=== PATIENT | male | born 1960 | race Caucasian/White ===

== ENCOUNTER 2019-08-11 08:17 | Outpatient (CLI) | payer BC, SELFPAY ==
--- NOTE | 2019-08-11 08:32 | ECG_ITS ---
Measurements Intervals [place] Rate: 91 P: 52 DE: 190 QRS: -9 QRSD: 91 T: 31 QT: 365 QTc: 449 Interpretive Statements SINUS RHYTHM POSSIBLE LEFT ATRIAL ENLARGEMENT CANNOT RULE OUT SEPTAL INFARCT, AGE INDETERMINATE BASELINE WANDER- V2 ABNORMAL ECG Electronically Signed On 08-11-2019 8:51:37 CDT by Jose Manuel Aguila D.O.
== END 2019-08-11 08:18 | disposition home or self-care (01) ==
LOC: ANHCARD 08:21
PROVIDERS: PCP Internal Medicine; Visit Provider Nurse Practitioner
DX: R07.9 Chest pain, unspecified (principal); R94.31 Abnormal electrocardiogram [ECG] [EKG]
CPT/HCPCS: 93005

== ENCOUNTER 2019-08-15 09:02 | Outpatient (CLI) | payer BC, SELFPAY ==
--- NOTE | 2019-08-15 09:19 | EST_ITS ---
Patient Info Name: Harrison Rogers Age: 58 years : 1960 Gender: Male Ht: 71 in Wt: 205 lbs BSA: 2.18 m2 Technical Quality: Good Exam Date: 08/15/2019 10:21 AM [facility] Patient Status: Outpatient Admit Date: 08/15/2019 Staff Ordering Physician: Ange Martinez NP Manager Basketball: Mecca Robertson RCS Attending Provider: TORRIE DUENAS DO Referring Physician: Michelle RAYO; Exercise Technologist: Mitali Etienne RDCS Exercise Physician: Torrie Duenas DO Exam Type: CA stress echo Study Info Indications R94.31 - Abnormal electrocardiogram ECG EKG Treadmill exercise stress echocardiogram is performed. Summary 1. 1. Negative Harvinder exercise stress test for ischemic ST changes by ECG criteria. 2. 2. Good functional capacity, achieving 10 METs of workload. 3. 3. Baseline hypertension. 4. 4. Appropriate HR response to exercise. 5. 5. Appropriate HR recovery at 1 minute post exercise. 6. 6. Negative stress echocardiogram for ischemia by wall motion analysis. 7. 7. Patient informed of the above results. Stress Echo Findings Left Ventricle Appropriate increase in LV endocardial thickening with systole. Appropriate augmentation of contractility with systole. No wall motion abnormality. Left Ventricle Normal LV systolic function, no wall motion abnormality. Protocol: Harvinder Stress ECG Details Stage: REST Duration (min): 6 min : 13 sec Speed (mph): 0.0 Grade (%): 0 HR (bpm): 74 SBP (mmHg): 157 DBP (mmHg): 92 METS: --- Stage: REST Duration (min): 13 min : 46 sec Speed (mph): 0.0 Grade (%): 0 HR (bpm): 79 SBP (mmHg): 157 DBP (mmHg): 92 METS: --- Stage: STAGE 1 Duration (min): 1 min : 0 sec Speed (mph): 1.7 Grade (%): 10 HR (bpm): 103 SBP (mmHg): 157 DBP (mmHg): 92 METS: --- Stage: STAGE 1 Duration (min): 2 min : 0 sec Speed (mph): 1.7 Grade (%): 10 HR (bpm): 106 SBP (mmHg): 157 DBP (mmHg): 92 METS: --- Stage: STAGE 1 Duration (min): 3 min : 0 sec Speed (mph): 1.7 Grade (%): 10 HR (bpm): 109 SBP (mmHg): 168 DBP (mmHg): 83 METS: --- Stage: STAGE 2 Duration (min): 1 min : 0 sec Speed (mph): 2.5 Grade (%): 12 HR (bpm): 120 SBP (mmHg): 168 DBP (mmHg): 83 METS: --- Stage: STAGE 2 Duration (min): 2 min : 0 sec Speed (mph): 2.5 Grade (%): 12 HR (bpm): 127 SBP (mmHg): 179 DBP (mmHg): 80 METS: --- Stage: STAGE 2 Duration (min): 3 min : 0 sec Speed (mph): 2.5 Grade (%): 12 HR (bpm): 131 SBP (mmHg): 179 DBP (mmHg): 80 METS: --- Stage: STAGE 3 Duration (min): 1 min : 0 sec Speed (mph): 3.4 Grade (%): 14 HR (bpm): 146 SBP (mmHg): 183 DBP (mmHg): 80 METS: --- Stage: STAGE 3 Duration (min): 2 min : 0 sec Speed (mph): 3.4 Grade (%): 14 HR (bpm): 154 SBP (mmHg): 183 DBP (mmHg): 80 METS: --- Stage: STAGE 3 Duration (min)
== END 2019-08-15 09:03 | disposition home or self-care (01) ==
PROVIDERS: PCP Internal Medicine; Visit Provider Nurse Practitioner
DX: R94.31 Abnormal electrocardiogram [ECG] [EKG] (principal)
CPT/HCPCS: 93351

== ENCOUNTER 2020-08-13 09:08 | Outpatient (CLI) | payer BC, SELFPAY ==
--- NOTE | ~2020-08-13 | CT_ITS ---
EXAMINATION: CT abdomen pelvis w con INDICATION: Left lower quadrant pain TECHNIQUE: Computed tomographic images of the abdomen and pelvis were obtained after the administrati on of 100 cc of Omnipaque 350 intravenous contrast. The dose-length product (DLP) was 806.79 mGy-cm. Automated exposure control and iterative reconstruction technique were employed. COMPARISON: 10/03/2018 FINDINGS: The lung bases are clear. The heart size is normal. The liver is diffusely low in attenuati on when compared with the spleen, consistent with hepatic steatosis. Cysts of the liver measure up to 8 mm in the left hepatic lobe. The spleen, pancreas, gallbladder, and adrenal glands are normal. Cys ts of the kidneys measure up to 1.9 cm on the right. There is a 4 mm stone in the proximal left urete r which causes mild hydronephrosis. No pathologically enlarged abdominal or pelvic lymph nodes are id entified. There is calcified atherosclerosis of the aorta and many of the other arteries. There is no free intraperitoneal gas or evidence of bowel obstruction. The appendix is normal. There is moderate spondylosis at L5-S1. A small fat-containing umbilical hernia is noted. IMPRESSION: 1. 4 mm stone in the proximal left ureter causing mild left hydronephrosis. Reviewed, dictated and finalized at location B.
[2020-08-13 09:37] LABS: Estimated Glomerular Filt Rate > 60
== END 2020-08-13 09:09 | disposition home or self-care (01) ==
PROVIDERS: PCP Internal Medicine; Visit Provider Nurse Practitioner
DX: R10.32 Left lower quadrant pain (principal); K76.89 Other specified diseases of liver; N28.1 Cyst of kidney, acquired; N13.2 Hydronephrosis with renal and ureteral calculous obstruction
CPT/HCPCS: 74177; Q9967

== ENCOUNTER 2021-05-23 08:35 | Emergency (ER) | payer BC, SELFPAY ==
--- NOTE | ~2021-05-23 | XR_ITS ---
EXAMINATION: XR chest 1V portable EXAM DATE: 05/23/2021 09:42 INDICATION: Cough, shortness of breath. TECHNIQUE: Portable AP frontal chest x-ray was obtained. There is no prior study for comparison. FINDINGS: Some left midlung zone somewhat linear opacities which could be subsegmental atelectasis or pneumonia. The lungs are otherwise clear. There are no pleural effusions. The cardiomediastinal si lhouette is within normal limits. There is no pneumothorax suspected. There are no osseous abnormal ities identified. IMPRESSION: Left midlung zone subsegmental atelectasis or pneumonia. Reviewed, dictated and finalized at location B. GRINDER
[2021-05-23 08:43] VITALS: BP 147/87; PULSE 106; RESP 16; TEMP 36.2; O2SAT 97
[2021-05-23 09:18] VITALS: PULSE 108; O2SAT 96
[2021-05-23 09:36] LABS: Hematocrit 46.4 % (42.0-52.0); Hemoglobin 15.7 g/dL (14.0-18.0); Immature Granulocyte Absolute 0.02 K/mm3 (0.00-0.031); Immature Granulocyte Percent A 0.4 % (0-0.5); Immature Platelet Fraction Pct 3.8 % (0.9-11.2); Lymphocytes Absolute Auto 0.83 K/mm3 (0.9-3.2); Lymphocytes Percent Auto 15.3 % (18.3-44.2); Mean Corpuscular HGB Conc 33.8 g/dl (32-36); Mean Corpuscular Hemoglobin 28.5 pg (26-34); Mean Corpuscular Volume 84.4 fl (80-100); Mean Platelet Volume 9.8 fl (7.4-10.4); Monocytes Absolute Auto 0.4 K/mm3 (0.1-0.6); Monocytes Percent Auto 7.9 % (2.6-8.5); Neutrophils Absolute Auto 4.1 K/mm3 (1.3-6.7); Neutrophils Percent Auto 76.4 % (45.5-73.1); Platelet Count Result 143 k/mm3 (150-375); Red Cell Distribution Width 12.6 % (11.5-14.5); White Blood Count 5.4 K/mm3 (4.5-10.0)
[2021-05-23 09:48] LABS: Alanine Aminotransferase 52 U/L (4-50); Albumin Level 4.2 g/dL (3.5-5.1); Alkaline Phosphatase 81 U/L (38-126); Anion Gap 11 mmol/L (8-16); Aspartate Amino Transferase 48 U/L (17-59); Bilirubin,Total 0.6 mg/dL (0.2-1.3); Blood Urea Nitrogen 14 mg/dL (9-20); Calcium 8.9 mg/dL (8.4-10.2); Carbon Dioxide 28 mmol/L (22-30); Chloride 99 mmol/L (98-107); Estimated CRCL calculation 89 ml/min; Estimated Glomerular Filt Rate > 60; Glucose 130 mg/dL (65-110); Potassium 3.7 mmol/L (3.4-5.0); Sodium 138 mmol/L (137-145)
--- NOTE | 2021-05-23 09:54 | ED.GENADULT ---
HPI - General Adult General Chief complaint: Weakness <Juarez Hammer PA-C - Last Filed: 05/23/21 10:28> Stated complaint: covid positive <ELOY hTapa Last Filed: 05/23/21 10:28> Time Seen by Provider: 05/23/21 09:18 <Juarez Hammer PA-C - Last Filed: 05/23/21 10:28> Source: patient <ELOY Thapa Last Filed: 05/23/21 10:28> Mode of arrival: ambulatory <ELOY Thapa Last Filed: 05/23/21 10:28> Limitations: no limitations <ELOY Thapa Last Filed: 05/23/21 10:28> History of Present Illness HPI narrative: Patient is a 60 yo male, unvaccinated against COVID, who tested positive for COVID on 05/21/21. He states he has felt fatigue and nausea. He denies vomiting or diarrhea. He reports dry cough. He states e has talked to his PCP and she told him he is not a good candidate for monoclonal antibodies. Patient denies chest pain, syncope, wheezing, or any other emergent symptoms. <Juarez Hammer PA-C - Last Filed: 05/23/21 10:28> Related Data Allergies/adverse reactions: Allergies Allergy/AdvReac Type Severity Reaction Status Date / Time codeine Allergy Mild JITTERY Verified 05/31/20 08:06 hydrocodone Allergy Mild JITTERY Verified 05/31/20 08:06 <Juarez Hammer PA-C - Last Filed: 05/23/21 10:28> Review of Systems Review of Systems: CONSTITUTIONAL: Reports fatigue denies fever, chills, or sweats. EYES: Denies visual changes, redness, or discharge. ENT: Denies rhinorrhea, congestion, sore throat, or otalgia. CARDIOVASCULAR: Denies chest pain, palpitations, or edema. RESPIRATORY: Reports cough denies dyspnea. GASTROINTESTINAL: Reports nausea denies abdominal pain, vomiting, or diarrhea. GENITOURINARY: Denies dysuria or hematuria. SKIN: Denies rash or itching. MUSCULOSKELETAL: Denies back pain, joint pain, or myalgia. NEUROLOGIC: Denies headache, numbness, dizziness, or weakness. PSYCHIATRIC: Denies anxiety or depression. <Juarez Hammer PA-C - Last Filed: 05/23/21 10:28> [facility] Past Medical History Medical History: Medical History (Updated 05/23/21 @ 10:08 by Juarez Hammer PA-C) GERD (gastroesophageal reflux disease) Kidney stone removed Kidney stone on left side Melanoma <Juarez Hammer PA-C - Last Filed: 05/23/21 10:28> Family History Family History: Family History Grandparent Cerebrovascular accident Father Glaucoma <Juarez Hammer PA-C - Last Filed: 05/23/21 10:28> Social History Social History: Social History Smoking status: Never smoker Smoking end date: 05/04/84 Alcohol intake: never <Jaurez Hammer PA-C - Last Filed: 05/23/21 10:28> Exam Narrative: GENERAL: Well-appearing, well-nourished, and in no acute distress. HEAD: Normocephalic, atraumatic. EYES: PERRLA and EOMI. NECK: Supple. No adenopathy or masses. Range of motion intact. CHEST: Clear to auscultation. No respiratory distress. No wheezes rales or rhonchi. Patient speaking in clear sentences without difficulty. Not tachypneic. HEART: Regular rate and rhythm. EXTREMITIES: Normal range of motion. No edema. SKIN: Warm, dry, no rash. NEURO: No focal deficits. Alert and oriented x3. PSYCH: Normal mood and affect. <Juarez Hammer PA-C - Last Filed: 05/23/21 10:28> Course SPIRITUAL COUNSELOR/PA Physician Supervision For this patient encounter, I reviewed the SPIRITUAL COUNSELOR or PA documentation, treatment plan, and medical decision making. <Blayne Carvalho MD - Last Filed: 05/23/21 13:40> Vital Signs Vital signs: Vital Signs Temperature 97.1 F L 05/23/21 08:43 Pulse Rate 106 H 05/23/21 08:43 Respiratory Rate 16 01/20/22 08:43 Blood Pressure 147/87 H 05/23/21 08:43 Pulse Oximetry 97 05/23/21 08:43 Temperature 97.1 F L 05/23/21 08:43 Pulse Rate 95 05/23/21 10:24 Respiratory Rate 20 05/23/21 10:24 Blood Pressure
[2021-05-23] MEDS: ONDANSETRON HCL ODT 4 MG TABLET PO (10:06)
[2021-05-23 10:24] VITALS: BP 149/99; PULSE 95; RESP 20; O2SAT 95
== END 2021-05-23 10:27 | disposition home or self-care (01) ==
PROVIDERS: Physician Assistant; Emergency Provider Emergency Medicine; PCP Internal Medicine
DX: U07.1 COVID-19 (principal); J18.9 Pneumonia, unspecified organism; K21.9 Gastro-esophageal reflux disease without esophagitis; Z87.442 Personal history of urinary calculi; Z85.820 Personal history of malignant melanoma of skin
CPT/HCPCS: 36415; 71045; 80053; 85025; 85055; 99283; A9270

== ENCOUNTER 2022-05-30 08:39 | Outpatient (CLI) | payer OTHER, SELFPAY ==
[2022-05-30 19:52] LABS: Basophils Absolute Auto 0.1 K/mm3 (0.0-0.1); Eosinophils Absolute Auto 0.2 K/mm3 (0-0.3); Eosinophils Percent Auto 2.9 % (0-4.4); Hematocrit 46.5 % (42.0-52.0); Immature Granulocyte Absolute 0.01 K/mm3 (0.00-0.031); Immature Granulocyte Percent A 0.2 % (0-0.5); Lymphocytes Absolute Auto 1.63 K/mm3 (0.9-3.2); Lymphocytes Percent Auto 27.4 % (18.3-44.2); Mean Corpuscular HGB Conc 32.3 g/dl (32-36); Mean Corpuscular Hemoglobin 27.8 pg (26-34); Mean Corpuscular Volume 86.3 fl (80-100); Mean Platelet Volume 10.4 fl (7.4-10.4); Monocytes Absolute Auto 0.6 K/mm3 (0.1-0.6); Monocytes Percent Auto 9.7 % (2.6-8.5); Neutrophils Absolute Auto 3.5 K/mm3 (1.3-6.7); Neutrophils Percent Auto 58.8 % (45.5-73.1); Platelet Count Result 203 k/mm3 (150-375); Red Blood Count 5.39 M/mm3 (4.6-6.20); Red Cell Distribution Width 14.1 % (11.5-14.5)
[2022-05-30 20:51] LABS: Prostate Specific Antigen 3.3 ng/mL (< OR = 4.0)
[2022-05-30 21:27] LABS: Alanine Aminotransferase 52 U/L (6-50); Albumin Level 4.2 g/dL (3.5-5.1); Alkaline Phosphatase 68 U/L (38-126); Anion Gap 7 mmol/L (8-16); Aspartate Amino Transferase 45 U/L (17-59); Bilirubin,Total 0.6 mg/dL (0.2-1.3); Blood Urea Nitrogen 17 mg/dL (9-20); Calcium 9.1 mg/dL (8.4-10.2); Carbon Dioxide 29 mmol/L (22-30); Chloride 106 mmol/L (98-107); Cholesterol 176 mg/dL (0-200); Estimated Glomerular Filt Rate > 60; Glucose 92 mg/dL (65-110); HDL Direct 43 mg/dL; Potassium 4.8 mmol/L (3.4-5.0); Sodium 142 mmol/L (137-145); Triglycerides 133 mg/dL (<150)
[2022-05-30 21:30] LABS: LDL Cholesterol Direct 100 mg/dL
== END 2022-05-30 08:40 | disposition home or self-care (01) ==
LOC: ANHGOSHLAB 08:41
PROVIDERS: PCP Internal Medicine; Visit Provider Nurse Practitioner
DX: Z13.29 Encounter for screening for other suspected endocrine disorder (principal); Z13.220 Encounter for screening for lipoid disorders; Z12.5 Encounter for screening for malignant neoplasm of prostate
CPT/HCPCS: 36415; 80053; 80061; 84153; 85025; G0103

== ENCOUNTER 2022-07-10 08:26 | Outpatient (CLI) | payer OTHER, SELFPAY ==
--- NOTE | 2022-07-22 14:41 | WPDHOMESLEEP ---
Sleep Study - Home Unattended Date of Study: 07/10/22 Ordering Provider: Ange Martinez NP Interpreting Provider: Jerri Daniels, DO Home Sleep Study Type: Watch PAT Height: 1.8 m Weight: 90.718 kg Body Mass Index: 27.8 Neck Circumference (inches): 17 [place]: 8 Reason for Sleep Study Snoring, multiple nighttime awakenings Sleep History The patient is a 61-year-old male with depression, GERD and history of tobacco use that had a sleep study ordered by his primary care for evaluation of sleep apnea. The patient denies awakening from sleep short of breath. He occasionally awakens at night with heartburn, belching or cough. He constantly snores loudly enough that others complain. He frequently has trouble sleeping when he has a cold. He denies waking up gasping for air throughout the night. He occasionally has breathing problems at night observed by himself or others. He denies sweating excessively at night. He occasionally has heart palpitations or irregular heartbeats during the night. He occasionally falls asleep during the day but never while driving. He denies sleep paralysis, cataplexy and hypnagogic / hypnopompic hallucinations. He denies having trouble at school or work due to sleepiness. He denies feeling afraid of going to sleep. He denies having nightmares. He occasionally remembers his dreams. He occasionally has thoughts racing through his mind. He denies feeling sad or depressed. He occasionally has anxiety. He denies having muscular tension. He denies noticing parts of his body jerk. He denies kicking during the night. He denies having crawling and aching feelings in his legs and denies having leg pain during the night. He denies grinding his teeth during sleep and denies awakening with morning jaw pain. He denies being bothered by pain during the day and denies being awakened by pain during the night. He denies waking up feeling stiff in the morning. He denies waking up with sore or achy muscles. He denies waking up with pain in the neck, spine and other joints. He goes to bed between 9-10 p.m. on both weekdays and weekends. It takes him 30 minutes to fall asleep. He wakes up 2-3 times throughout the night to urinate and will take 10-20 minutes to fall back asleep. He wakes up between 6-7 a.m. on both weekdays and weekends. He typically gets 5-6 hours of sleep per night. He will stay in bed for 15-20 minutes after waking up in the morning. He currently lives with his . He does not consume any caffeinated beverages within 2 hours of bedtime. He does not engage in physical exercise before bedtime. He will watch television before falling asleep. He will occasionally take naps in the afternoon or the evening and they are refreshing. He denies consuming any caffeinated beverages throughout the day. He quit smoking cigarettes 30 years ago. He denies alcohol and recreational drug use. [facility] Past Medical History Medical History GERD (gastroesophageal reflux disease) Kidney stone removed Kidney stone on left side Melanoma Family History Family History Grandparent Cerebrovascular accident Father Glaucoma Social History Social History Smoking status: Never smoker Smoking end date: 05/04/84 Alcohol intake: never Lack of Transportation: No Lack of Food: Never True Current Housing: I Have Housing Concerned About Future Housing: No Difficulty Paying Gas/Electric Bills: No Difficulty Paying for Meds: No Currently Unemployed: No Education: Trade/Vocational Certificate Difficulty w/ Childcare or Family Care: No Medications Home Medications Medication Instructions Recorded Confirmed Type famotidine 10 mg tablet (Acid 10 mg PO DAILY 01/16/22 01/16/22 History Lining Stamper (famotidine)) lac
[2022-07-22 14:49] VITALS: BMI 27.8
== END 2022-07-11 12:20 | disposition home or self-care (01) ==
LOC: ANHCSM 08:26
PROVIDERS: PCP Internal Medicine; Visit Provider Nurse Practitioner
DX: G47.10 Hypersomnia, unspecified (principal); G47.33 Obstructive sleep apnea (adult) (pediatric)
CPT/HCPCS: 95800

== ENCOUNTER → 2022-12-29 14:31 | Outpatient (CLI) | payer OTHER, SELFPAY ==
--- NOTE | ~2022-12-29 | XR_ITS ---
EXAMINATION: XR shoulder RT min 2V DATE: 12/29/2022 15:01 INDICATION: Right shoulder injury and pain. TECHNIQUE: 4 views of right shoulder were obtained. COMPARISON: None. FINDINGS: Bone alignment is normal. No fracture. There is mild osteoarthritis of glenohumeral joint a nd severe osteoarthritis of acromioclavicular joint. IMPRESSION: 1. Polyarticular osteoarthritis. Reviewed, dictated and finalized at location E.
== END ==
PROVIDERS: PCP Nurse Practitioner; Visit Provider Nurse Practitioner
DX: M19.011 Primary osteoarthritis, right shoulder (principal)
CPT/HCPCS: 73030

== ENCOUNTER → 2023-06-17 09:07 | Outpatient (CLI) | payer OTHER, SELFPAY ==
--- NOTE | ~2023-06-17 | XR_ITS ---
Clinical Indication: Shortness of breath PA and lateral views of the chest: Comparison: 05/23/2021 Findings: The lungs are clear, without evidence of focal consolidation or pleural effusion. Cardiome diastinal silhouette is within normal limits. Bones and soft tissues are unremarkable. Impression: Normal chest. Reviewed, dictated and finalized at [facility]. ICAL OPERATIONS AND TRAINING Impression: Normal chest.
== END ==
PROVIDERS: PCP Internal Medicine; Visit Provider Nurse Practitioner
DX: R06.02 Shortness of breath (principal)
CPT/HCPCS: 71046

== ENCOUNTER 2024-06-09 10:43 | Outpatient (CLI) | payer MEDICARE, SELFPAY ==
--- NOTE | ~2024-06-09 | US_ITS ---
Limited Abdominal Sonogram: Real-time sonographic imaging of the right upper quadrant was performed. Clinical History: Abdominal pain Findings: The liver appears normal with no evidence of mass lesion or bile duct dilatation. Main por kinjal vein demonstrates normal direction of flow. The gallbladder is well distended, and appears normal with no evidence of gallstone or wall thickening. The common bile duct measures 4 mm. The visualize d pancreas, aorta, and IVC are unremarkable. Right renal cyst noted. Impression: No significant abnormality seen. Reviewed, dictated and finalized at location M. BRATION CHECKER Impression: No significant abnormality seen.
== END 2024-06-09 10:44 | disposition home or self-care (01) ==
LOC: GOSHIMG 10:43
PROVIDERS: PCP Nurse Practitioner; Visit Provider Nurse Practitioner
DX: R10.11 Right upper quadrant pain (principal)
CPT/HCPCS: 76705

== ENCOUNTER 2024-06-16 09:24 | Outpatient (CLI) | payer MEDICARE, SELFPAY ==
--- NOTE | ~2024-06-16 | XR_ITS ---
EXAMINATION: XR abdomen/kub 1V DATE: 06/16/2024 09:46 INDICATION: Gastroesophageal reflux disease. TECHNIQUE: A supine view of the abdomen on 3 radiographs was obtained. COMPARISON: CT abdomen and pelvis 08/13/2020 FINDINGS: There are no dilated loops of bowel. There is a moderate volume of stool in the colon. IMPRESSION: 1. Normal bowel gas pattern. Reviewed, dictated and finalized at location A. P PRESS OPERATOR
--- NOTE | ~2024-06-16 | XR_ITS ---
EXAMINATION: XR chest 2V DATE: 06/16/2024 09:46 INDICATION: Atypical chest pain. TECHNIQUE: Frontal and lateral views of the chest were obtained. COMPARISON: Chest 2 views 06/17/2023 FINDINGS: There is no pneumonia, pleural effusion, or pneumothorax. The heart size is normal. There a re surgical clips in left axilla. IMPRESSION: 1. No acute cardiopulmonary disease. Reviewed, dictated and finalized at location A. LED HELPER
--- OUTSIDE RECORDS SUMMARY | 2024-06-16 09:44 | XMS_ITS | Clinical Summary ---
Author [place] [facility] [place] [address] Address [address] [place] [address] Care Team Providers Care Employment Recruiter Name Role Phone Jennie CARROLL MD, Keegan Perry Primary Care Provid er Allergies Active Allergy Reactions Criticality Noted Date Comments Hydrocodone-Acetaminophen Medications famotidine (PEPCID) 20 mg tablet Take 20 mg by mouth nightly 1 Active fluvoxaMINE 100 mg capsule,extende d release 24hr 1 Active albuterol HFA (ProAir HFA) 90 mcg/actuation inhaler Inhale 2 puffs every 4 (four) hours as needed for wheezing or shortness of breath 8.5 g 1 Active azithromycin (ZITHROMAX) 250 mg tablet Take 2 tabs (500 mg) by mouth today, than 1 daily for 4 days. 6 tablet 1 Active Additional Information Patient not taking.Reported on 05/19/2021 ketoconazole (NIZORAL) 2 % shampooIndicati ons:Seborrheic dermatitis, unspecified Apply to damp skin, lather, leave on 5 minutes, and rinse 120 mL 3 4 Active fluocinonide (LIDEX) 0.05 % external solutionIndicat ions:Seborrheic dermatitis, unspecified Apply twice a day to scalp for rash (avoid eyelids and face) 60 mL 3 4 Active triamcinolone (KENALOG) 0.1 % creamIndication s:Rash and other nonspecific skin eruption Apply to hands twice a day as needed for rash. 80 g 3 5 Active triamcinolone (KENALOG) 0.1 % ointmentIndicat ions:Rash and other nonspecific skin eruption Apply topically 2 (two) times a day as needed for rash 180 g 3 4 025 Discontin ued(Alter elizabeth therapy) Active Problems Problem Noted Date Diagnosed Date Malignant melanoma of left u pper extremity including shoulder 11/08/2020 Actinic keratosis 12/22/2016 Sebaceous gland hyperplasia 12/22/2016 Basal cell carcinoma (BCC) of upper extremity History of nonmelanoma skin cancer 11/06/2015 Sebaceous cyst 11/06/2015 Seborrheic eczema 06/05/2015 Intertrigo 06/05/2015 Tinea versicolor 06/05/2015 Surgical follow-up care 04/04/2015 Neoplasm of connective and soft tissue 5 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 Basal cell carcinoma (BCC) of face 06/06/2014 Benign neoplasm of skin of trunk 05/16/2014 Keratosis, senilis 05/16/2014 Malignant melanoma of back 05/16/2014 Resolved Problems Problem Noted Date Diagnosed Date Resolved Date Neoplasm of uncertain behavior of skin 01/19/2017 11/08/2020 Skin neoplasm 02/27/2015 11/08/2020 Encounters Date Type Department Care Team Description 06/14/2024 1:15 PM TEST AND TURN UP TECHNICIAN Office Visit [facility] Floor [address] [place] [address] Mattie Breen MD Actinic keratosis (Primary Dx); Rash and other nonspecific skin eruption; History of malignant melanoma; History of nonmelanoma skin cancer; Seborrheic dermatitis, unspecified from Last 3 Months Immunizations Name Administration Dates Next Due Influenza, Quadrivalent, Rec ombinant, Egg Free, Preservative Free, Intramuscular 02/09/2019 Influenza, Quadrivalent, Spl it, Preservative Free, Intramuscular 02/15/2018 ZOSTER Recombinant 05/16/2019 Medical History Medical History Date Comments Personal history of malignan t melanoma of skin History of malignant melanom a of skin - (Added by TW Conv) Personal history of neoplasm of uncertain behavior History of neoplasm of uncer tain behavior of skin - (Added by TW Conv) Depression Kidney stone Cancer (CMS/HCC) (HCC) Melanoma (HCC) Family History Medical History Relation Name Comments Cancer Brother Melanoma Father Family history of melanoma - (Added by TW Conv) Arthritis Other Diabetes Other Heart disease Other Anesthesia problems Neg Hx Relation Name Status Comments Brother Father Other Social History Tobacco Use Types Packs/Day Years Used Date Smoking Tobacco: Former Cigarettes 0.8 10 Smokeless Tobacco: Never Tobacco Cessation:Counseling Given: Not Answered Comments:37 Alcohol Use Standard Drinks/Week Comments Never 0 (1 standard drink = 0.6 oz pur e alcohol) AUDIT-C Answer Date Recorded Q1: How often do you have a drink containing alc ohol? Never 11/12/2020 Average Number of Drinks Not on file 021 Q3: How often do you have si x or more drinks on one occasion? Never 11/12/2020 Sex and Gender Information Value Date Recorded Sex Assigned at Not on file Legal Sex Male 12:47 AM TEST AND TURN UP TECHNICIAN Gender Identity Not on file Sexual Orientation Not on file Obstetrics History Last Filed Vital Signs Vital Sign Reading Time Taken Comments Blood Pressure 132/74 04/13/2022 12:39 PM TEST AND TURN UP TECHNICIAN Pulse 114 04/13/2022 12:39 PM TEST AND TURN UP TECHNICIAN Temperature 36.8 C (98.3 F) 04/13/2022 12:39 PM TEST AND TURN UP TECHNICIAN Respiratory Rate 14 04/13/2022 12:39 PM TEST AND TURN UP TECHNICIAN Oxygen Saturation 96% 04/13/2022 12:39 PM TEST AND TURN UP TECHNICIAN Inhaled Oxygen Concentration - - Weight 92.6 kg (204 lb 1.6 oz) 04/13/2022 12:39 PM TEST AND TURN UP TECHNICIAN Height 180.3 cm (5' 10.98 ) 04/13/2022 12:39 PM TEST AND TURN UP TECHNICIAN Body Mass Index 28.48 04/13/2022 12:39 PM TEST AND TURN UP TECHNICIAN Plan of Treatment Health Maintenance Due Date Last Done Comments Colon Cancer Screening-Colonoscopy 1960 Depression Screening 1960 Hepatitis C Screening 1960 Prostate Cancer Screening-PSA 1960 DTaP/Tdap/Td Vaccine (1 - Tdap) 1969 Hepatitis B Screening 1976 Zoster Vaccine (2 of 2) 07/11/2019 05/16/2019 Fall Risk Assessment 11/12/2021 11/12/2020 Abdominal Aortic Aneurysm (AAA) Screen 09/14/2023 Pneumococcal vaccine 65+ (1 of 1 - PCV) 09/14/2023 Well Visit 65+ 09/14/2023 Influenza Vaccine (#1) 2024 02/09/2019, 2017 [place]REF[place] [employer] Care Teams Employment Recruiter Relationship Specialty Start Date End Date Keegan Schneider II, MD PCP - General Family Practice 09/07/17
--- OUTSIDE RECORDS SUMMARY | 2024-06-16 09:44 | XMS_ITS | Referral Summary ---
Author Organization [facility] [place] [address] Address [address] [place] [address] Care Team Providers Care Milker Machine Name Role Phone Jennie CARROLL MD, Keegan Perry Primary Care Provid er Encounters Date Type Department Care Team Description 06/14/2024 1:15 PM NURSES' AIDE Office Visit [facility] Floor [address] [place] [address] Mattie Breen MD Actinic keratosis (Primary Dx); Rash and other nonspecific skin eruption; History of malignant melanoma; History of nonmelanoma skin cancer; Seborrheic dermatitis, unspecified from Last 3 Months Allergies Active Allergy Reactions Criticality Noted Date [...] skin 01/19/2017 11/08/2020 Skin neoplasm 02/27/2015 11/08/2020 Immunizations Name Administration Dates Next Due Influenza, Quadrivalent, Rec ombinant, Egg Free, Preservative Free, Intramuscular 02/09/2019 Influenza, Quadrivalent, Spl it, Preservative Free, Intramuscular 02/15/2018 ZOSTER Recombinant 05/16/2019 Social History Tobacco Use Types Packs/Day Years [...] on file Legal Sex Male 12:47 AM NURSES' AIDE Gender Identity Not on file Sexual Orientation Not on file Last Filed Vital Signs Vital Sign Reading Time Taken Comments Blood Pressure 132/74 04/13/2022 12:39 PM NURSES' AIDE Pulse 114 04/13/2022 12:39 PM NURSES' AIDE Temperature 36.8 C (98.3 F) 04/13/2022 12:39 PM NURSES' AIDE Respiratory Rate 14 04/13/2022 12:39 PM NURSES' AIDE Oxygen Saturation 96% 04/13/2022 12:39 PM NURSES' AIDE Inhaled Oxygen Concentration - - Weight 92.6 kg (204 lb 1.6 oz) 04/13/2022 12:39 PM NURSES' AIDE Height 180.3 cm (5' 10.98 ) 04/13/2022 12:39 PM NURSES' AIDE Body Mass Index 28.48 04/13/2022 12:39 PM NURSES' AIDE Plan of Treatment Not on file Insurance [employer] PREFERRED AET[place] PREFERRED [facility] MEDICARE Care Teams Milker Machine Relationship Specialty Start Date End Date Keegan Schneider II, MD PCP - General Family Practice 09/07/17
== END 2024-06-16 09:25 | disposition home or self-care (01) ==
PROVIDERS: PCP Nurse Practitioner; Visit Provider Nurse Practitioner
DX: K21.9 Gastro-esophageal reflux disease without esophagitis (principal); R19.8 Other specified symptoms and signs involving the digestive system and abdomen; R07.89 Other chest pain
CPT/HCPCS: 71046; 74018

== ENCOUNTER 2024-08-31 00:43 | Day surgery (SDC) | payer MEDICARE, SELFPAY ==
[2024-08-22 10:18] VITALS: BMI 25.1
--- OUTSIDE RECORDS SUMMARY | 2024-08-31 00:46 | XMS_ITS | Referral Summary ---
Author Organization [facility] [place] [address] Address [address] [place] [address] Care Team Providers Care Gas Check Pad Maker Name Role Phone Jennie CARROLL MD, Keegan Perry Primary Care Provid er Encounters Date Type Department Care Team Description 06/14/2024 1:15 PM ASSISTANT EDUCATION DIRECTOR Office Visit [facility] Dermatology [facility] [place] [address] [place] [address] Mattie Breen MD Actinic keratosis (Primary Dx); Rash and other nonspecific skin eruption; History of malignant melanoma; History of nonmelanoma skin cancer; Seborrheic dermatitis, unspecified from Last 3 Months Allergies Active Allergy Reactions Criticality Noted Date Comments Hydrocodone-Acetaminophen Medications famotidine (PEPCID) 20 mg tablet Take 20 mg by mouth nightly 1 Active fluvoxaMINE 100 mg capsule,extended release 24hr 1 Active albuterol HFA (ProAir [...] taking.Reported on 05/19/2021 ketoconazole (NIZORAL) 2 % shampooIndicatio ns:Seborrheic dermatitis, unspecified Apply to damp skin, lather, leave on 5 minutes, and rinse 120 mL 3 4 Active fluocinonide (LIDEX) 0.05 % external solutionIndicati ons:Seborrheic dermatitis, unspecified Apply twice a day to scalp for rash (avoid eyelids and face) 60 mL 3 4 Active triamcinolone (KENALOG) 0.1 % creamIndications :Rash and other nonspecific skin eruption Apply to hands twice a day as needed for rash. 80 g 3 5 Active Active Problems Problem Noted Date Diagnosed Date [...] 01/19/2017 11/08/2020 Skin neoplasm 02/27/2015 11/08/2020 Immunizations Immunization Administration Dates Next Due Influenza, Quadrivalent, Rec [...] on file Legal Sex Male 12:47 AM ASSISTANT EDUCATION DIRECTOR Gender Identity Not on file Sexual Orientation Not on file Last Filed Vital Signs Vital Sign Reading Time Taken Comments Blood Pressure 132/74 04/13/2022 12:39 PM ASSISTANT EDUCATION DIRECTOR Pulse 114 04/13/2022 12:39 PM ASSISTANT EDUCATION DIRECTOR Temperature 36.8 C (98.3 F) 04/13/2022 12:39 PM ASSISTANT EDUCATION DIRECTOR Respiratory Rate 14 04/13/2022 12:39 PM ASSISTANT EDUCATION DIRECTOR Oxygen Saturation 96% 04/13/2022 12:39 PM ASSISTANT EDUCATION DIRECTOR Inhaled Oxygen Concentration - - Weight 92.6 kg (204 lb 1.6 oz) 04/13/2022 12:39 PM ASSISTANT EDUCATION DIRECTOR Height 180.3 cm (5' 10.98 ) 04/13/2022 12:39 PM ASSISTANT EDUCATION DIRECTOR Body Mass Index 28.48 04/13/2022 12:39 PM ASSISTANT EDUCATION DIRECTOR Plan of Treatment Not on file [place] Care Teams Gas Check Pad Maker Relationship Specialty Start Date End Date Keegan Schneider II, MD PCP - General Family Practice 09/07/17
--- OUTSIDE RECORDS SUMMARY | 2024-08-31 00:46 | XMS_ITS | Clinical Summary ---
Author Organization [facility] [place] [address] Address [address] [place] [address] Care Team Providers Care Video Recorder Mechanic Name Role Phone Jennie CARROLL MD, Keegan [...] Department Care Team Description 06/14/2024 1:15 PM ADULT CARE PROVIDER Office Visit [facility] Dermatology [address] [place] [address] [address] [place] [id number] Mattie Breen MD Actinic keratosis (Primary Dx); Rash and other nonspecific skin eruption; History of malignant melanoma; History of nonmelanoma skin cancer; Seborrheic dermatitis, unspecified from Last 3 Months Immunizations Immunization Administration Dates Next Due Influenza, [...] by TW Conv) Depression Kidney stone Cancer (HCC) Melanoma (HCC) Family History Medical History [...] on file Legal Sex Male 12:47 AM ADULT CARE PROVIDER Gender Identity Not on file Sexual Orientation Not on file Obstetrics History Last Filed Vital Signs Vital Sign Reading Time Taken Comments Blood Pressure 132/74 04/13/2022 12:39 PM ADULT CARE PROVIDER Pulse 114 04/13/2022 12:39 PM ADULT CARE PROVIDER Temperature 36.8 C (98.3 F) 04/13/2022 12:39 PM ADULT CARE PROVIDER Respiratory Rate 14 04/13/2022 12:39 PM ADULT CARE PROVIDER Oxygen Saturation 96% 04/13/2022 12:39 PM ADULT CARE PROVIDER Inhaled Oxygen Concentration - - Weight 92.6 kg (204 lb 1.6 oz) 04/13/2022 12:39 PM ADULT CARE PROVIDER Height 180.3 cm (5' 10.98 ) 04/13/2022 12:39 PM ADULT CARE PROVIDER Body Mass Index 28.48 04/13/2022 12:39 PM ADULT CARE PROVIDER Plan of Treatment Health Maintenance Due Date Last Done Comments Colon Cancer Screening-Colonoscopy 1958 Depression Screening 1958 Hepatitis C Screening 1958 Prostate Cancer Screening-PSA 1958 DTaP/Tdap/Td Vaccine (1 - Tdap) 1969 Hepatitis B Screening 1976 Pneumococcal vaccine 65+ (1 of 1 - PCV) 2008 Zoster Vaccine (2 of 2) 07/11/2019 05/16/2019 Fall Risk Assessment 11/12/2021 11/12/2020 Abdominal Aortic Aneurysm (AAA) Screen 09/14/2023 Well Visit 65+ 09/14/2023 Influenza Vaccine (#1) 2024 02/09/2019, 2017 [place] Care Teams Video Recorder Mechanic Relationship Specialty Start Date End Date Keegan Schneider II, MD PCP - General Family Practice 09/07/17
[2024-08-31 09:32] VITALS: BP 119/80; PULSE 76; RESP 18; TEMP 36.1; O2SAT 100
[2024-08-31] MEDS: LACTATED RINGERS 1,000 ML 150 ML IV CONT (09:37)
--- NOTE | 2024-08-31 09:41 | WPDANESEPPF ---
Anes - Initial Pre Proc Eval Procedure: Operation Date: 08/31/24 11:30 Proposed Procedures p Esophagogastroduodenoscopy & Colonoscopy - Tucker Mazariegos MD Date/Time: 08/31/24 09:41 Surgeon: Tucker Mazariegos MD Pre Op Diagnosis: GERD,other chest pain,fam hx of neoplasm Patient Data Age: 63 Gender: M Height: 1.8 m Weight: 81.2 kg Last Vital Signs Temp 97 F L 08/31/24 09:32 Pulse 76 08/31/24 09:32 Resp 18 08/31/24 09:32 BP 119/80 08/31/24 09:32 Pulse Ox 100 08/31/24 09:32 O2 Del Method Room Air 08/31/24 09:32 Allergies Allergy/AdvReac Type Severity Reaction Status Date / Time codeine Allergy Mild JITTERY Verified 08/31/24 09:30 hydrocodone Allergy Mild JITTERY Verified 08/31/24 09:30 Home Medications ?Medication ?Instructions ?Recorded ?Confirmed ?Type lactobacillus combination no.9 4 4,000 mmu cells PO DAILY 01/16/22 08/31/24 History billion cell capsule (Adult 50 Plus Probiotic) bqbmpjynmjlx-qrc-xhuif acid-vit 1 tablet PO DAILY 01/16/22 08/31/24 History K-lycop 400 mcg-20 mcg-370 mcg tablet (One-A-Day Men's 50 Plus (with vitamin K)) esomeprazole magnesium 20 mg 20 mg PO DAILY 06/07/24 08/31/24 History capsule,delayed release (Nexium 24HR) fluvoxamine 50 mg tablet See Rx Instructions .Route 07/01/24 08/31/24 Rx .COMPLEX #180 tabs Patient hx anesthesia problems: none Family hx anesthesia problems: none Results Review: All pre-operative results and documents have been reviewed as part of the pre-operative evaluation. [facility] Past Medical History Medical History Kidney stone on left side GERD (gastroesophageal reflux disease) Melanoma Kidney stone removed Surgical History Surgical History Status post surgical removal of malignant neoplasm of skin Family History Family History Grandparent Cerebrovascular accident Father Glaucoma Social History Social History Social History: Caffeine-rarely Smoking packs per day: 1 Smoking cigarettes per day: 20.0 Years smoked: 8 Smoking pack-years: 8.00 Smoking status: Former smoker Tobacco type: cigarettes Smoking end date: 05/04/84 Alcohol intake: never Substance use: never Substance use type: does not use Do You Feel Safe in your Home?: Yes Lack of Transportation: No Lack of Food: Never True Current Housing: I Have Housing Concerned About Future Housing: No Difficulty Paying Gas/Electric Bills: No Difficulty Paying for Meds: No Currently Unemployed: No Education: Trade/Vocational Certificate Difficulty w/ Childcare or Family Care: No Anes - Eval Final PreProcedure Day of Procedure 08/31/24 09:41 Patient weight: normal Heart: regular rate and rhythm Lungs: clear to auscultation Airway: Mallampati scale class II Neurological: alert and oriented Last oral intake: >/= 8 hours ASA classification: II Emergent: no Anesthetic plan: proceed Anesthesia type and monitoring: general GIVS and standard monitoring Results Review: All pre-operative results and documents have been reviewed as part of the pre-operative evaluation. Informed Consent: The patient's anesthetic plan and its attendant risks and benefits were discussed with the patient/family/POA. Questions were solicited and answers provided to the satisfaction of the patient/family/POA.
--- NOTE | 2024-08-31 09:43 | PM.HPGS ---
History of Present Illness History of Present Illness Consent: Risks, benefits, and alternatives have been discussed and questions answered. Patient agrees to proceed with procedure. Chief complaint: GERD,other chest pain,fam hx of neoplasm Narrative: Harrison Rogers is a 63 year old male with almost 2 years of discomfort after eating, gurgling stomach , better with antacids. Last colonoscopy about 6 years and personal history of colon polyp Review of Systems Review of Systems: All systems reviewed & are unremarkable except as noted in HPI and below PMFSH Past Medical History Medical History Kidney stone on left side GERD (gastroesophageal reflux disease) Melanoma Kidney stone removed Surgical History Surgical History Status post surgical removal of malignant neoplasm of skin Family History Family History Grandparent Cerebrovascular accident Father Glaucoma Social History Social History Social History: Caffeine-rarely Smoking packs per day: 1 Smoking cigarettes per day: 20.0 Years smoked: 8 Smoking pack-years: 8.00 Smoking status: Former smoker Tobacco type: cigarettes Smoking end date: 05/04/84 Alcohol intake: never Substance use: never Substance use type: does not use Do You Feel Safe in your Home?: Yes Lack of Transportation: No Lack of Food: Never True Current Housing: I Have Housing Concerned About Future Housing: No Difficulty Paying Gas/Electric Bills: No Difficulty Paying for Meds: No Currently Unemployed: No Education: Trade/Vocational Certificate Difficulty w/ Childcare or Family Care: No Meds Home Medications and Allergies Home Medications ?Medication ?Instructions ?Recorded ?Confirmed ?Type lactobacillus combination no.9 4 4,000 mmu cells PO DAILY 01/16/22 08/31/24 History billion cell capsule (Adult 50 Plus Probiotic) zfzsvhvypdwn-uzg-sagdt acid-vit 1 tablet PO DAILY 01/16/22 08/31/24 History K-lycop 400 mcg-20 mcg-370 mcg tablet (One-A-Day Men's 50 Plus (with vitamin K)) esomeprazole magnesium 20 mg 20 mg PO DAILY 06/07/24 08/31/24 History capsule,delayed release (Nexium 24HR) fluvoxamine 50 mg tablet See Rx Instructions .Route 07/01/24 08/31/24 Rx .COMPLEX #180 tabs Allergies Allergy/AdvReac Type Severity Reaction Status Date / Time codeine Allergy Mild JITTERY Verified 08/31/24 09:30 hydrocodone Allergy Mild JITTERY Verified 08/31/24 09:30 Vital Signs Vital Signs - 24 hr 08/31/24 09:32 Temperature 97 F L Pulse Rate 76 Respiratory Rate 18 Blood Pressure 119/80 Pulse Oximetry 100 Oxygen Delivery Room Air Exam Const: General: comfortable and no acute distress HENMT: Face/Nose/Sinus: Normal nares present Eyes: General: appearance normal, both eyes and all related structures Neck: Neck: no JVD Resp: Auscultation: clear to auscultation bilaterally Cardio: Rate: regular rate Rhythm: regular rhythm GI: Inspection: non-distended GI Palp: Yes Soft to palpation Skin: General skin exam: normal color Neuro: Speech: normal speech Extrem: General: normal to inspection Psych: Mental Status: mental status grossly normal Assessment and Plan Assessment and plan (1) GERD (gastroesophageal reflux disease): Qualifiers: Esophagitis presence: without esophagitis Qualified Code(s): K21.9 - Gastro-esophageal reflux disease without esophagitis Code(s): K21.9 - Gastro-esophageal reflux disease without esophagitis Status: Acute Assessment and Plan: egd (2) History of adenomatous polyp of colon: Code(s): Z86.0101 - Personal history of adenomatous and serrated colon polyps Status: Acute Assessment and Plan: colonoscopy
--- NOTE | 2024-08-31 09:51 | SUR.OPER ---
EGD start 944 end 947, colonoscopy start 950
[2024-08-31 10:04] VITALS: BP 103/62; PULSE 68; RESP 25; O2SAT 95
[2024-08-31 10:14] VITALS: BP 98/59; PULSE 62; RESP 17; O2SAT 96
[2024-08-31 10:24] VITALS: BP 108/76; PULSE 64; RESP 16; O2SAT 98
== END 2024-08-31 10:36 | disposition home or self-care (01) ==
PROVIDERS: PCP Nurse Practitioner; Referring Provider Nurse Practitioner; Visit Provider Internal Medicine Gastroenterology
PROC: 0DJ08ZZ Inspection of Upper Intestinal Tract, Via Natural or Artificial Opening Endoscopic (ICD-10-PCS; CPT 45378; principal; 2024-08-31 11:30)
DX: Z12.11 Encounter for screening for malignant neoplasm of colon (principal); D12.4 Benign neoplasm of descending colon; K63.5 Polyp of colon; D12.8 Benign neoplasm of rectum; K64.8 Other hemorrhoids; K57.10 Diverticulosis of small intestine without perforation or abscess without bleeding; K21.9 Gastro-esophageal reflux disease without esophagitis; Z98.890 Other specified postprocedural states; Z87.891 Personal history of nicotine dependence; Z87.442 Personal history of urinary calculi; Z85.820 Personal history of malignant melanoma of skin; Z80.0 Family history of malignant neoplasm of digestive organs; Z82.49 Family history of ischemic heart disease and other diseases of the circulatory system
CPT/HCPCS: 43239; 45385; 88305; J2704; J7120

== ENCOUNTER 2025-04-19 07:15 | Outpatient (RCR) | payer MEDICARE, SELFPAY | END 2025-04-19 08:25 | disposition home or self-care (01) | LOC: ANHCPREHAB 07:15 | PROVIDERS: PCP Internal Medicine | DX: Z95.5 Presence of coronary angioplasty implant and graft (principal) | CPT/HCPCS: 93798 ==